=== PATIENT | female | born 1980 | race Caucasian/White ===

== ENCOUNTER 2017-06-13 06:59 | Day surgery (SDC) | payer BC ==
--- NOTE | 2017-05-16 08:38 | HP ---
CC: [facility] HISTORY AND PHYSICAL: DATE OF ADMISSION: 06/13/17. This patient is scheduled for surgery with Dr. Lambert at [facility] on 06/13/17. ATTENDING PROVIDER: Paddy Lambert MD * (DICTATED BY LEFTY AWAD) CHIEF COMPLAINT: Symptomatic varicose vein, she is scheduled for endoluminal closure of the left greater saphenous vein with excision of varicose veins to be performed by Dr. Lambert on 06/13/17. HISTORY OF PRESENT ILLNESS: This is a 37-year-old female who presented to Dr. Lambert for consultation on 03/19/17 with a complaint of symptomatic varicose veins. She has had bilateral leg pain at the end of a long day when standing for periods of time and complained of heaviness, achiness, edema, and night cramps. She has worn compression stockings for many years without improvement. She feels that the varicose veins began as a teenager and has just progressed over the years. Recently went to [place], was on her feet, and had tremendous discomfort in both lower legs after being on her feet all day. The patient states the symptoms improved with elevation. She has noticed varicose veins are getting worse predominantly on the anterior lateral aspect of the right leg as well as lateral aspect of the left leg and these bulging varicose veins have become tender. She states that the left lower extremity is more symptomatic than the right, but both are bothersome. She has no prior history of DVT or thrombophlebitis. Her medical history includes 2 previous surgeries having knee surgery on the right in 1996 and a 6 years ago for her daughter. On physical exam at the consultation, the patient had varicose veins ranging in the 7- to 8-mm range on both lower legs. There was no superficial phlebitis. No dermatitis. The areas predominantly noted are in the thigh of both legs. The legs themselves are warm and pulses in the feet bilaterally are strong. A duplex scan on 03/19/17 revealed on the right side, there was no evidence of DVT. The greater saphenous vein is incompetent with the reflux time of 2.8 and the vein measures 8.1 mm. On the right, the short saphenous vein has no reflux. On the left side, the deep system is unremarkable. No evidence of DVT. The greater saphenous vein on the left is found to be incompetent and measured 6.1 mm at the junction with a 4-second reflux time and at the level of the knee, the vein measured 7.5 mm. There is no evidence of reflux in the short saphenous. The patient's impression was bilateral superficial venous reflux disease with symptomatic varicose veins bilaterally with the left side being more symptomatic than the right. At this time, the patient is scheduled for radiofrequency closure of the left greater saphenous vein with microphlebectomies performed on the left leg by Dr. Lambert. Also, at the time of her history and physical evaluation on 05/15/17, she was found to have mole in the middle of her back, which she is not aware of. This has darkness in different areas of the mole itself. It measures 5 mm , slightly irregular. So, I made Dr. Lambert aware of this, showed him this, and he felt this was suspicious and we should remove this. So, this will be added on to her surgery. In addition to the radiofrequency closure of the left left greater saphenous vein with microphlebectomies on the left, she will have excision of nevi from the mid back region. PAST MEDICAL HISTORY: For this patient is no chronic medical disorders. PAST SURGICAL HISTORY: Previous surgeries include patellar tendon surgery on her right knee in 1996; this was done in [place] and at [facility] 6 years ago when she had her daughter. She said she did have nausea associated with the anesthesia, otherwise there were no complications. She denies any chronic medical disorders. She has no history of heart disease, diabetes, or any chronic disorders. MEDICATIONS: The patient is on Zoloft; she takes 50 mg 1 tablet daily. ALLERGIES: She is allergic to FLONASE, had bleeding in her nose secondary _ reaction to FLONASE and does not use this. She denies any history of problems with latex or adhesive. She has no other allergies other than the FLONASE. SOCIAL HISTORY: She is . She has 1 daughter. 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 She is sexually active. She is on no control pills, but her cycle has been regular. She has no reason to believe she is . REVIEW OF SYSTEMS: She has a slight cold. No fever. She is going to see her primary today. She has not been admitted to the hospital or had any chronic problems this year. PHYSICAL EXAMINATION VITAL SIGNS: Today, her weight is 252 pounds. She is 5 feet 4 inches. Her blood pressure is 106/67, her pulse is 87 and regular, and her BMI is 43.3. HEENT: Within normal limits. NECK: Supple. There is no JVD or carotid bruits. Her thyroid is felt to be normal. LUNGS: Clear throughout. HEART: Regular rhythm without a murmur heard. BREASTS: Her breast exam was not done. This was with her primary and she recently had a mammogram, which was found to be negative. ABDOMEN: Soft and nontender. There are no masses. EXTREMITIES: As mentioned previously. She has edema in both legs with varicose veins noted primarily in the thigh region bilaterally. There is no skin discoloration of her lower legs and there is no skin breakdown. NEUROLOGIC: Pulses are present distally to dorsalis pedis. The patient neurologically is nonfocal. She is alert and oriented x3 and she is nonfocal and neurologically intact. SKIN: In regards to skin itself, she does have this one mole in the middle of her back. This measures 5 mm. It is brown in color and flat. 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 This was an area that she was not aware of, not in area that she could really see well. IMPRESSION: The patient with extensive superficial venous insufficiency on both lower legs with the left leg being more symptomatic. At this time, she is scheduled for radiofrequency closure of the left greater saphenous vein with microphlebectomies to be performed by Dr. Lambert. In addition, he will excise the nevi from her back at the same setting. We will call in a prescription for Tylenol with Codeine, so she has this available to her postoperatively and this will be sent electronically to her pharmacy. LEFTY AWAD [id number]/[facility] #: [id number] MTDD
--- NOTE | 2017-06-12 22:05 | HP ---
HISTORY AND PHYSICAL: DATE OF ADMISSION: 06/13/17 The patient is scheduled for surgery on 06/13/17. ADDENDUM: Dr. Lambert has scheduled this patient to undergo radiofrequency closure of the left greater saphenous vein with microphlebectomy at the same setting. He will excise a melanotic nevi from the trunk on this patient. The patient requested this to be removed and at this time, we will plan to do both procedures on 06/13/17. LEFTY AWAD [id number]/[facility] #: [id number] MTDAnna
[~2017-06-13 06:59] MED LIST: Buffered Lidocaine 0.9% SYRIN* 5 ML/SYR SYRINGE INTRADERM ONE
[2017-06-13] MEDS ORDERED: Lidocaine 2% PF * 5 ML VIAL ONE ×2 (08:16→08:29)
[2017-06-13] MEDS ORDERED: Sodium Bicarbonate 8.4% SYR* 10 ML SYRINGE ONE (08:17)
[2017-06-13] MEDS ORDERED: EPINEPHrine AMP 1 MG/ML ONE (08:17)
[2017-06-13] MEDS ORDERED: Lidocaine 2% PF* 10 ML AMP ONE (08:17)
[2017-06-13] MEDS ORDERED: Polidocanol 1% 20 MG/2 ML AMP IV ONE (08:18)
[2017-06-13] MEDS ORDERED: Lidocaine 1% MPF* 2 ML VIAL ONE (08:18)
[2017-06-13] MEDS ORDERED: Lidocaine 1% INJ* 10 MG/ML 30 ML SDV ONE (08:20)
[2017-06-13] MEDS ORDERED: fentaNYL* 50 MCG/ML 2 ML VIAL (100 MCG VIAL) ONE (08:28)
[2017-06-13] MEDS ORDERED: Midazolam* 1 MG/ML 2 ML VIAL (2 MG) ONE (08:28)
[2017-06-13] MEDS ORDERED: Propofol* 10 MG/ML 20 ML BTL IV PUSH ONE ×2 (08:29→09:24)
[2017-06-13] MEDS ORDERED: Naloxone* 0.4 MG/ML 1 ML VIAL IV PRN (09:02)
[2017-06-13] MEDS ORDERED: Ibuprofen TAB* 600 MG ONE (10:15)
[2017-06-13 10:44] VITALS: BP 127/78
--- NOTE | 2017-06-14 08:47 | OP ---
DATE OF OPERATION: 06/13/17 - [facility] DATE OF : 76 SURGEON: Paddy Lambert MD. PRE-OP DIAGNOSES: 1. Superficial venous reflux disease, left lower extremity, secondary to an incompetent left greater saphenous vein and symptomatic varicose veins. 2. Pigmented lesion of the mid back. POST-OP DIAGNOSES: 1. Superficial venous reflux disease, left lower extremity, secondary to an incompetent left greater saphenous vein and symptomatic varicose veins. 2. Pigmented lesion of the mid back. OPERATIVE PROCEDURE: 1. Radiofrequency closure, left greater saphenous vein. 2. Microphlebectomies, less than 10 incisions. 3. Excision of pigmented lesion of the mid back, size 6 mm in diameter. DESCRIPTION OF PROCEDURE: The patient was taken to the procedure room. She underwent ultrasound mapping of the left greater saphenous vein as well as marking of the varicosities and marking of the pigmented lesion of the back. She was then taken to the operating room. She was placed in a supine position first. She was prepped and draped in the usual sterile fashion and under sedation lidocaine 1% was used to the infiltrate on the medial aspect below the knee area. Percutaneous cannulation of the greater saphenous vein was done with a micropuncture kit. Once the small needle and wire were in place, the needle was exchanged for a 7-[place] Island[place] 11 cm long introducer sheath that was advanced over the wire inside the greater saphenous vein after which we proceeded to remove the introducer and the wire. The sheath was left in place which was then back bled and flushed with saline. We then proceeded to advance the FasTrac radio-frequency catheter inside the greater saphenous vein via the sheath, positioning the tip of the catheter 2 cm below the saphenofemoral junction. After this was completed, tumescent local anesthesia was then infiltrated around the vein and the catheter from the entrance point up to the saphenofemoral junction. Once this was completed, the patient was placed in Trendelenburg position. We proceed to then activate the radiofrequency unit after confirming the tip of the catheter to be 2 cm below the saphenofemoral junction. The first 7 cm were cycled twice and then a single cycle thereafter, delivering a total of 8 cycles to the greater saphenous vein. After this was done, there was evidence of closure of the treated greater saphenous vein. However, the common femoral vein appeared to be compressible without any abnormalities. After this was completed, the previously marked varicose veins were then removed by small incisions in stab avulsion technique. Less than 10 incisions were performed. After this was completed, the incisions were closed with 5-0 Prolene and Steri- Strips. A light pressure dressing was applied to the left lower extremity, and after this was done the patient was placed on the lateral position exposing her mid back. The area was then prepped and draped in the usual sterile fashion. Lidocaine 1% was used to infiltrate the surrounding area of the pigmented lesion and after a good level of anesthesia was obtained, we then proceeded to use a circular blade punch biopsy, 6 mm, and the entire lesion was excised all the way down through the subcutaneous tissue. After this was done, minor oozing was noted. This was controlled by closing with vertical mattress sutures using 5-0 Prolene. After this was done, Steri- Strips were applied as well as the dressing. The patient tolerated the procedure well. She was then taken in good condition to the recovery room. [id number]/[facility] #: [id number] JUANCHO
== END 2017-06-13 10:40 | disposition home or self-care (01) ==
LOC: OREAST 06:59
PROVIDERS: ATTEND Surgery
DX: I83.92 Asymptomatic varicose veins of left lower extremity (principal); D22.5 Melanocytic nevi of trunk; Z68.41 Body mass index [BMI] 40.0-44.9, adult
CPT/HCPCS: 81025; 88305; A9270-GY; J0171; J2001; J2250; J2704; J3010

== ENCOUNTER 2017-08-01 07:07 | Day surgery (SDC) | payer BC ==
--- NOTE | 2017-07-15 21:06 | HP ---
HISTORY AND PHYSICAL: DATE OF ADMISSION/SURGERY: She is scheduled for surgery at [facility] on . DATE OF HISTORY AND PHYSICAL: 07/15/17 PROVIDER: Dr. Lambert.* (DICTATED BY CB PHAN NP) CHIEF COMPLAINT: Symptomatic varicose veins. HISTORY OF PRESENT ILLNESS: Zach Villegas is a 37-year-old female who most recently on 06/13/17 under-went radiofrequency closure of the left greater saphenous vein and microphlebectomies. She is doing well. She notes an improvement in the way that her left leg feels. She did not have the discomfort that she had prior to surgery. At her initial consult, a venous Duplex scan was done, which showed the right leg, the deep system was normal. The greater saphenous vein diameter at the saphenofemoral junction is 8.1 mm with a reflux time of 2.8 seconds. The greater saphenous vein diameter below the knee is 5.5 mm with a reflux time of 2.5 seconds. The short saphenous vein reveals no reflux. The varicose vein diameter measured by ultrasound guidance on the right on the lateral aspect of the thigh is 5.[address] Lambert has discussed the nature and course of endoluminal closure and venous reflux disease and has discussed the material risks and relevant alternatives to surgery. These were reviewed with the patient at her preoperative appointment, including but not limited to infection, bleeding, poor healing, recurrence, DVT. The patient has been given a chance to ask questions, these have been answered, and the patient will sign on admission an informed consent for right leg endoluminal closure of the greater saphenous vein and microphlebectomies. PAST MEDICAL HISTORY: The patient is in good health. She denies medical problems. She has not had any recent illnesses. PAST SURGICAL HISTORY: She had a patellar tendon transfer in her right knee in 1996 and in August 2010. MEDICATION: Sertraline 50 mg 1 by mouth. ALLERGIES: FLUTICASONE. FAMILY HISTORY: Father, hypercholesterolemia and mother, hypertension, diabetes. 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 She has never smoked and she denies alcohol use. REVIEW OF SYSTEMS: She has had nausea in the past. With her most recent surgical procedure, she notes no problems with anesthesia. She denied any recent colds or flu. She does not take a daily aspirin. She has not had any DVTs or blood clots. PHYSICAL EXAMINATION GENERAL: Zach Villegas is a 37-year-old female, obese, in no acute distress. VITAL SIGNS: Blood pressure 114/72, pulse is 80, respirations 18. Height 64 inches, weight 252 pounds. HEENT: Within normal limits. Teeth are in good repair. Pharynx clear. EOMs intact. Pupils are equal, round, reactive to light and accommodation. NECK: Supple. Full range of motion. Thyroid nonpalpable. No cervical adenopathy. SPINE: Normal curvature. No spine or CVA tenderness. CHEST: Lungs clear. HEART: S1, S2. Regular rate and rhythm. No extra heart sounds, murmurs, clicks, or rubs. ABDOMEN: Soft, nontender. Positive bowel sounds. Positive tympany. No masses or organomegaly. EXTREMITIES: +2 symmetrical radial pulses. NEURO: Alert and oriented x3. The rest of exam was grossly intact. LOCAL EXAM: Shows bulging varicosities of the right lower extremity in the 7 to 8 mm range, 1+ edema of the right lower extremity. IMPRESSION: Superficial venous reflux disease secondary to an incompetent right greater saphenous vein and status post radiofrequency closure of the left greater saphenous vein and microphlebectomies. PLAN: Same-day surgery admission to Dr. Lambert's service for right leg endoluminal closure of the greater saphenous vein and microphlebectomies. CB PHAN NP [id number]/[facility] #: [id number] [facility]
[2017-08-01] MEDS ORDERED: Lidocaine 2% PF * 5 ML VIAL ONE ×2 (08:14→09:26)
[2017-08-01] MEDS ORDERED: EPINEPHrine AMP 1 MG/ML ONE (08:15)
[2017-08-01] MEDS ORDERED: Lidocaine 2% PF* 10 ML AMP ONE (08:15)
[2017-08-01] MEDS ORDERED: Lidocaine 1% MPF* 2 ML VIAL ONE (08:17)
[2017-08-01] MEDS ORDERED: Sodium Bicarbonate 8.4%* 50 ML SYRINGE ONE (08:18)
[2017-08-01] MEDS ORDERED: Midazolam* 1 MG/ML 2 ML VIAL (2 MG) ONE (08:31)
[2017-08-01] MEDS ORDERED: fentaNYL* 50 MCG/ML 2 ML VIAL (100 MCG VIAL) ONE (08:32)
[2017-08-01] MEDS ORDERED: Propofol* 10 MG/ML 20 ML BTL IV PUSH ONE ×2 (09:26→09:28)
[2017-08-01] MEDS ORDERED: Ibuprofen TAB* 600 MG ONE (10:15)
[2017-08-01 10:21] VITALS: BP 113/74
--- NOTE | 2017-08-01 11:53 | OP ---
OPERATIVE REPORT: DATE OF OPERATION: 08/01/17 - [facility] DATE OF : 76 SURGEON: Paddy Lambert MD VIDEOTAPE OPERATOR: Liz Triplett NP ANESTHESIOLOGIST: Kartik Rebolledo DO ANESTHESIA: Local tumescent plus MAC. PRE-OP DIAGNOSIS: Superficial venous reflux disease of the right lower extremity secondary to an incompetent right greater saphenous vein. POST-OP DIAGNOSIS: Superficial venous reflux disease of the right lower extremity secondary to an incompetent right greater saphenous vein. OPERATIVE PROCEDURE: 1. Radiofrequency closure of right greater saphenous vein. 2. Microphlebectomies, greater than 10 less than 20 incisions. ESTIMATED BLOOD LOSS: None. DESCRIPTION OF PROCEDURE: The patient was taken to the procedure room. She underwent ultrasound mapping of the right greater saphenous vein as well as marking of the varicosities located on the posterior medial aspect of the right calf and lateral aspect of the thigh and leg. The patient was then placed in a supine position and she was prepped and draped in the usual sterile fashion. Under sedation, lidocaine 1% was used to infiltrate on the medial aspect of the right leg below the knee, percutaneous cannulation of the greater saphenous vein was done with a micropuncture kit, once the small needle and wire were in place, the needle was exchanged for a 7-[place] 11-cm long introducer sheath that was advanced over the wire inside the greater saphenous vein after which, we proceeded to remove the introducer and the wire. The sheath was left in place, which was then backbled and flushed with saline. We then proceeded to advance the FasTracker radiofrequency catheter of 7-cm coil via the sheath inside the greater saphenous vein positioning the tip of the catheter 2 cm below the saphenofemoral junction. After this was completed, tumescent local anesthesia was then infiltrated around the vein in the catheter from the entrance point up to the saphenofemoral junction. Once this was completed, we confirmed the tip of the catheter to be 2 cm below the saphenofemoral junction and proceeded to activate the radiofrequency unit, the first 7 cm was cycled twice and then a single cycle thereafter, delivering a total of 7 cycles through greater saphenous vein. After this was done, the previously marked varicose veins were then removed by small incision in a stab-avulsion technique. Greater than 10, less than 20 incisions were performed. After this was completed, incisions were closed with 5-0 Prolene and Steri-Strips. A light pressure dressing was applied to the right lower extremity. The patient tolerated the procedure well. She was taken in good condition to the recovery room. [id number]/[facility] #: [id number] MTDD
== END 2017-08-01 10:28 | disposition home or self-care (01) ==
LOC: OREAST 07:07
PROVIDERS: ATTEND Surgery
DX: I83.891 Varicose veins of right lower extremity with other complications (principal); Z68.41 Body mass index [BMI] 40.0-44.9, adult; F32.9 Major depressive disorder, single episode, unspecified
CPT/HCPCS: 81025; 88300; A9270-GY; J0171; J2001; J2250; J2704; J3010